=== PATIENT | male | born 1995 | race Hispanic/Latino ===

== ENCOUNTER 2017-01-21 18:37 | Emergency (ER) | payer OTHER, SELFPAY ==
[~2017-01-21] VITALS: Ht 190.5 cm; Wt 77.2 kg
[2017-01-21] MEDS ORDERED: IBUP1TAB7 PO (18:53)
[2017-01-21] MEDS ORDERED: PERCOCET 5MG/325MG TAB PO ONE (21:00)
[2017-01-21 22:38] VITALS: BP 135/67
[2017-01-21] MEDS ORDERED: NORCOTAB PO (22:56)
--- NOTE | 2017-01-22 07:34 | REP ---
Pain after trauma present. There is a fracture involving the base of the medial malleolus which is nondisplaced. Signed by Vaibhav Denise DO 01/22/2017 02:44 P
--- NOTE | 2017-01-22 08:29 | REP ---
Right TIB-fib series: Four views. History: Injury. Findings: There is a nondisplaced fracture through the medial malleolus. No other tibial or fibular fracture is seen on these views. Impression: Medial malleolar fracture nondisplaced. Signed by Terrence Arciniega MD 01/22/2017 08:57 A
== END 2017-01-21 23:23 | disposition home or self-care (01) ==
LOC: M ED 18:37
DX: S82.54XA Nondisplaced fracture of medial malleolus of right tibia, initial encounter for closed fracture (principal); W17.2XXA Fall into hole, initial encounter; Y92.89 Other specified places as the place of occurrence of the external cause; Y93.89 Activity, other specified; Y99.0 Civilian activity done for income or pay